=== PATIENT | female | born 1980 | race Hispanic/Latino ===

== ENCOUNTER 2017-10-06 05:36 | Outpatient (CLI) | payer MEDICAID ==
[2017-10-06] MEDS ORDERED: LACTATED RINGERS 500 ML IV ONE (05:47)
[2017-10-06] MEDS ORDERED: FIORICET PO PRN (06:00)
[2017-10-06] MEDS ORDERED: ZOFRAN ODT PO PRN (06:16)
[2017-10-06 06:26] LABS: Bilirubin,Urine NEG (Negative); Blood,Urine NEG (Negative); Color,Urine Yellow (Yellow); Mucus,Urine FEW /HPF
[2017-10-06 06:55] LABS: Hematocrit 27.7 % (30.3-42.9); Hemoglobin 9.1 gm/dl (10.1-14.3); Mean Corpuscular HGB Conc 33 % (30-34); Mean Corpuscular Volume 78 fl (79-97); Platelet Count 226 K/mm3 (140-440); Red Blood Count 3.55 M/mm3 (3.65-5.03); Red Cell Distribution Width 17.9 % (13.2-15.2)
[2017-10-06 06:56] LABS: Mean Corpuscular Hemoglobin 26 pg (28-32)
[2017-10-06 07:01] LABS: Total Volume,Urine 1650
[2017-10-06 07:07] LABS: Amphetamine Screen,Urine PRESUMPTIVE NEGATIVE; Benzodiazepines Screen,Urine PRESUMPTIVE NEGATIVE; Cannabinoid Screen,Urine PRESUMPTIVE NEGATIVE; Cocaine Screen,Urine PRESUMPTIVE NEGATIVE; Methadone Screen,Urine PRESUMPTIVE NEGATIVE; Opiate Screen,Urine PRESUMPTIVE NEGATIVE
[2017-10-06 07:15] LABS: Alanine Aminotransferase 9 units/L (7-56); Uric Acid 5.8 mg/dL (3.5-7.6)
--- NOTE | 2017-10-06 07:29 | Event Note ---
Date: 10/06/17 patient in triage w/ c/o migraine QUINN. She states she went to [facility] Wednesday night after dropping off 24h urine in [place] office (refused to stay for blood draw ) with same complaint and was d/c'd home with instructions to complete another 24h urine. Wednesday's 24h urine in office is pending results. Patient has been non compliant keeping appointments with [facility], f/u in our office, taking prescribed labetalol and completing baseline pre-e labs. In fact, the urine dropped off in the office Wednesday was supposed to be part of her baseline pre-e labs d/t existing maternal hypertension therefor there is nothing to compare today's results with. FHT cat 1, no ctx noted, pt c/o QUINN with light sensitivty that she describes as a migraine (she does have hx of migranes prior to ). She denies epigastric pain. RN to enter b/p into chart but was 130's /70's when I assessed patient. Will consult Dr. Lane with results and further plan of care.
[2017-10-06 07:40] VITALS: BP 143/62
[2017-10-06] MEDS ORDERED: NORCO 5/325 PO ONE (08:35)
[2017-10-06] MEDS ORDERED: LACTATED RINGERS 1,000 ML IV ONE (08:35)
[2017-10-06] MEDS ORDERED: LACTATED RINGERS 1,000 ML ONE (08:37)
== END 2017-10-06 10:15 | disposition home or self-care (01) ==
LOC: TRG 05:36
PROVIDERS: ATTEND Obstetrics & Gynecology
DX: O26.892 Other specified pregnancy related conditions, second trimester (principal); R51 Headache; Z3A.26 26 weeks gestation of pregnancy
CPT/HCPCS: 36415; 59025; 80307; 81001; 82565; 83615; 84156; 84450; 84460; 84550; 85027; 96360; J7120; Q0162

== ENCOUNTER 2017-11-26 13:13 | Outpatient (CLI) | payer MEDICAID ==
[2017-11-26] MEDS ORDERED: LACTATED RINGERS 500 ML IV ONE (14:08)
[2017-11-26 14:52] LABS: Bacteria,Urine 1+ /HPF (Negative); Bilirubin,Urine NEG (Negative); Blood,Urine NEG (Negative); Color,Urine Yellow (Yellow); Protein,Urine <15 mg/dL mg/dL (Negative); Urobilinogen,Urine < 2.0 mg/dL (<2.0)
[2017-11-26] MEDS ORDERED: NORMODYNE PO SCH (15:00)
[2017-11-26 16:27] LABS: Hematocrit 28.1 % (30.3-42.9); Mean Corpuscular HGB Conc 32 % (30-34); Mean Corpuscular Volume 76 fl (79-97); Platelet Count 237 K/mm3 (140-440); Red Cell Distribution Width 17.7 % (13.2-15.2)
[2017-11-26 16:33] LABS: Mean Corpuscular Hemoglobin 24 pg (28-32)
[2017-11-26 16:41] LABS: Alanine Aminotransferase 6 units/L (7-56); Uric Acid 4.3 mg/dL (3.5-7.6)
[2017-11-26 20:31] VITALS: BP 137/75
== END 2017-11-26 17:55 | disposition home or self-care (01) ==
LOC: TRG 13:13
PROVIDERS: ATTEND Obstetrics & Gynecology
DX: O09.523 Supervision of elderly multigravida, third trimester (principal); O47.1 False labor at or after 37 completed weeks of gestation; Z3A.37 37 weeks gestation of pregnancy
CPT/HCPCS: 36415; 59025; 81001; 82565; 83615; 84450; 84460; 84550; 85027

== ENCOUNTER 2017-12-22 20:38 | Inpatient (IN) | payer MEDICAID ==
--- NOTE | 2017-12-22 22:32 | History and Physical Report ---
History of Present Illness Date of examination: 12/22/17 Date of admission: 12/22/17 20:38 Chief complaint: here for iol for pre eclampsia History of present illness: Pt presents for scheduled IOL @ 37wks for mild pre E. She has no c/o this pm. Some irregular contractions are noted. Will start with cervidil this pm. Plan of care and serial IOL as well as need for MgSO4 and anitbx for GBS were d/w pt and questions were addressed and answered. Past History : 15 Term Births: 7 Premature Births: 1 Living Children: 8 Para: 8 Mult. Births: 0 Prev : 0 Prev. attempt? 0 Aborta: 6 Elect. Ab: 0 Spont. Ab: 6 Ectopics: 0 # 1 Delivery date: 2000 Weeks Gestation: 8 Delivery type: SAB Comments: D&C # 2 Delivery date: 03/07/2002 Weeks Gestation: 40 labor: no Delivery type: Hours of labor: 8 Anesthesia type: local Delivery location: [place] Sex: Male weight: 6-12 Name: Yosvany # 3 Delivery date: 12/16/2002 Weeks Gestation: 36 labor: yes Delivery type: Hours of labor: 15 Anesthesia type: epidural Delivery location: [place] Infant Sex: Female weight: 5-3 Name: Jacquie # 4 Delivery date: 2003 Weeks Gestation: 9-10 Delivery type: SAB Comments: D&C done # 5 Delivery date: 2003 Weeks Gestation: 9-10 Delivery type: SAB Comments: D&C done # 6 Delivery date: 03/11/2005 Weeks Gestation: 38 Delivery type: Hours of labor: 5 Anesthesia type: none Delivery location: [place] Inf[place] Sex: Male weight: 7-3 Name: Alexandre Comments: Hydramnios # 7 Delivery date: 2006 Weeks Gestation: - labor: no Delivery type: SAB Hours of labor: - Anesthesia type: - Delivery location: [place] Sex: - weight: - Name: - Comments: D&C done # 8 Delivery date: 06/04/2007 Weeks Gestation: 39 labor: no Delivery type: Hours of labor: 10 Anesthesia type: epidural Delivery location: [place] Sex: Male weight: 7-3 Name: Pranav # 9 Delivery date: 2011 Weeks Gestation: 12 Delivery type: SAB Delivery location: [place] Comments: D&C done # 10 Delivery date: 2011 Weeks Gestation: 6-8 Delivery type: SAB Hours of labor: - Anesthesia type: - Delivery location: [place] Inf[place] Sex: - weight: - Name: - Comments: No D&C # 11 Delivery date: 11/28/2012 Weeks Gestation: 40 labor: no Delivery type: Hours of labor: 8 Anesthesia type: epidural Delivery location: [place] Sex: Female weight: 7-2 Name: Lorraine Comments: Induction for cervical stenosis # 12 Delivery date: 02/22/2014 Weeks Gestation: 38 labor: no Delivery type: Hours of labor: 10 Anesthesia type: epidural Delivery location: [place] Infant Sex: Female weight: 8-3 Name: Alyssa # 13 Delivery date: 03/01/2015 Weeks Gestation: 39 labor: no Delivery type: Hours of labor: 8 Anesthesia type: epidural Delivery location: [place] Sex: Female weight: 8-1 Name: Katy # 14 Delivery date: 04/04/2016 Weeks Gestation: 32? labor: yes Delivery type: Hours of labor: 10 Anesthesia type: epidural Delivery location: [place] Sex: Male weight: 5-5 Name: Braulio Past Medical History: Hypertension (2015) Mental health borderline personality disorder Presently on no medications Anxiety Past Surgical History: Cone biopsy(2007) Abdominal Surgery: (2007) abdominoplasty D&C: (2000) D&C: (2003) D&C: (2003) D&C: (2005) D&C: (2011) D&C: (2011) Family History Summary: Other family member - Has No Family History of Ovarvian Cancer - Entered On: Other family member - Has No Family History of Colon Cancer - Entered On: 2016 Other family member - Has Family History of Hypertension - Entered On: 2016 Other family member - Has Family History of Diabetes - Entered On: 06/01/2017 Other family member - Has Family History of Coronary Heart Disease - Entered On : 06/01/2017 Other family member - Has Family History Breast Cancer - Entered On: 06/01/2017 Social History: Patient is [employer] Risk Factors: Smoked Tobacco Use: Never smoker Drug use: no Alcohol use: yes Drinks per day: social Dietary Counseling: pn yes Past Medical History 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 of genital herpes: no Partner hx. of genital herpes: no Genetic History Congenital Heart Defect: Mom: no Dad: no [place] Disease: Mom: no Dad: no Thalassemia Mom: no Dad: no Neural Tube Defect Mom: no Dad: no Down's Syndrome Mom: no Dad: no Terrence-Sachs Mom: no Dad: no Sickle Cell Disease/Trait Mom: no Dad: no Hemophilia Mom: no Dad: no Muscular Dystrophy Mom: no Dad: no Cystic Fibrosis Mom: no Dad: no [place] Chorea Mom: no Dad: no Mental Retardation Mom: no Dad: no Fragile X Mom: no Dad: no Other Genetic/Chromosomal Disorder Mom: no Dad: no Child w/other defect Mom: no Dad: no Enviromental Exposures Xray Exposure: no Medication, drug, or alcohol use since LMP: yes Chemical/Other Exposure: no Exposure to Cat Liter: no Hx of Parvovirus (Fifth Disease): no Active Medications (reviewed today): FORMULA 27-1 MG ORAL TABLET ( VIT-FE FUMARATE-FA) 1 po q day as directed CYCLOBENZAPRINE HCL 10 MG ORAL TABLET (CYCLOBENZAPRINE HCL) HYDRALAZINE HCL 10 MG ORAL TABLET (HYDRALAZINE HCL) TRANDATE 100 MG ORAL TABLET (LABETALOL HCL) Current Allergies (reviewed today): TYLENOL WITH CODEINE #3 (ACETAMINOPHEN-CODEINE TABS) (Critical) Past History Past Medical History: other (pre eclampsia) 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) Social history: no significant social history, single - Obstetrical History Expected Date of Delivery: 01/13/18 Actual Gestation: 36 Week(s) 6 Day(s) : 15 Para: 8 Spontaneous Abortions: 6 Number of Living Children: 8 Medications and Allergies Allergies Allergy/AdvReac Type Severity Reaction Status Date / Time No Known Allergies Allergy Verified 10/06/17 06:27 Home Medications Medication Instructions Recorded Confirmed Last Taken Type Labetalol [Normodyne] 200 mg PO BID 11/03/17 11/26/17 11/25/17 History Vit-Fe Fumar-FA [ 1 tab PO QDAY 11/03/17 11/26/17 11/02/17 History Vitamin] Docusate Sodium [Colace] 100 mg PO BID PRN #60 capsule 11/04/17 11/26/17 Unknown Rx Ferrous Sulfate [Feosol 325 MG tab] 325 mg PO BID #60 tablet 11/04/17 11/26/17 Unknown Rx Review of Systems All systems: negative - Vital Signs Vital signs: Vital Signs Pulse BP Pulse Ox 98 H 182/103 96 12/22/17 21:01 12/22/17 21:01 12/22/17 21:01 Temp Pulse Resp BP Pulse Ox 98.9 F 95 H 18 187/86 97 12/22/17 21:27 12/22/17 22:31 12/22/17 21:27 12/22/17 22:06 12/22/17 22:31 - Physical Exam Breasts: Positive: tender Cardiovascular: Normal S1 Lungs: Positive: Clear to auscultation, Normal air movement Abdomen: Positive: normal appearance, soft. Negative: distention, tenderness, guarding Genitourinary (Female): Positive: normal external genitalia, normal perenium - Obstetrical FHR: category 1 Cervical Dilatation: 1.2 (as per admitting nurse) Results Result Diagrams: 12/22/17 22:20 All other labs normal. Assessment and Plan - Patient Problems (1) Preeclampsia Current Visit: No Status: Acute Qualifiers: Plan to address problem: place cervidil at midnight at which point pt will be 37 weeks start serial IOL MgSO4 when in active labor or sooner for bp >160/105 (2) 36 to 37 weeks gestation of Current Visit: Yes Status: Acute (3) Anemia affecting in third trimester Current Visit: Yes Status: Acute (4) Group beta Strep positive Current Visit: Yes Status: Acute Plan to address problem: -antibx started once in active labor or SROM
[2017-12-22 22:34] LABS: Hemoglobin 8.6 gm/dl (10.1-14.3); Mean Corpuscular HGB Conc 32 % (30-34); Mean Corpuscular Volume 73 fl (79-97); Platelet Count 233 K/mm3 (140-440); Red Blood Count 3.69 M/mm3 (3.65-5.03); Red Cell Distribution Width 18.4 % (13.2-15.2)
[2017-12-22 22:37] LABS: Mean Corpuscular Hemoglobin 23 pg (28-32)
[2017-12-22] MEDS ORDERED: BRETHINE SUB-Q PRN (22:47)
[2017-12-22] MEDS ORDERED: BRETHINE IVP PRN (22:47)
[2017-12-22] MEDS ORDERED: ePHEDrine SULFATE IV PRN (22:47)
[2017-12-22] MEDS ORDERED: ZOFRAN IV PRN (22:47)
[2017-12-22] MEDS ORDERED: XYLOCAINE 2% INFILTRATI ONE (22:47)
[2017-12-22] MEDS ORDERED: MINERAL OIL PO PRN (22:47)
[2017-12-22] MEDS ORDERED: POLYCILLIN/NS 2 GM/100 ML 2 GM/100 ML BAG IV ONE (22:47)
[2017-12-22] MEDS ORDERED: PITOCin/NS 20 UNIT/1000ML DRIP 20 UNITS/1,000 ML BAG IV SCH (23:00)
[2017-12-22] MEDS ORDERED: AMBIEN PO PRN (23:23)
[2017-12-22] MEDS: SUBLIMAZE IV PRN (23:24)
[2017-12-22] MEDS: NORMODYNE PO SCH (23:34)
[2017-12-22] MEDS: LACTATED RINGERS 1,000 ML IV SCH (23:48)
[2017-12-23] MEDS ORDERED: CERVIDIL VG ONE
[2017-12-23 00:10] LABS: Alanine Aminotransferase 6 units/L (7-56); Albumin 3.2 g/dL (3.9-5); BUN/Creatinine Ratio 20; Blood Urea Nitrogen 10 mg/dL (7-17); Calcium 8.5 mg/dL (8.4-10.2); Hemolysis Index 2
[2017-12-23] MEDS: AMPICILLIN/NS 1 GM/50 ML 1 GM/50 ML BAG IV SCH ×4 (04:00→19:28)
--- NOTE | 2017-12-23 07:18 | Progress Note ---
Assessment and Plan Pt very sleepy Easily aroused. Denies any pain, no QUINN BP 146/81 Cat 1 stripEDWIGE deferred Cervidil due out @ noon. Continue POC. consulted/given report. Subjective - Subjective Date of service: 12/23/17 (sleeping soundly) Principal diagnosis: IUP 37 weeks for IOL PreE; GBS+ Patient reports: movement normal Objective - Vital Signs Vital Signs: Vital Signs - 12hr 12/22/17 12/22/17 12/22/17 21:01 21:06 21:11 Temperature Pulse Rate 98 H 97 H 96 H Respiratory Rate Blood Pressure 182/103 Blood Pressure [Right] O2 Sat by Pulse 96 96 96 Oximetry 12/22/17 12/22/17 12/22/17 21:16 21:21 21:26 Temperature Pulse Rate 90 91 H 94 H Respiratory Rate Blood Pressure Blood Pressure [Right] O2 Sat by Pulse 96 96 97 Oximetry 12/22/17 12/22/17 12/22/17 21:27 21:31 21:33 Temperature 98.9 F Pulse Rate 96 H 97 H 90 Respiratory 18 Rate Blood Pressure 144/80 Blood Pressure 144/80 [Right] O2 Sat by Pulse 95 96 Oximetry 12/22/17 12/22/17 12/22/17 21:36 21:41 21:46 Temperature Pulse Rate 100 H 97 H 92 H Respiratory Rate Blood Pressure Blood Pressure [Right] O2 Sat by Pulse 96 96 98 Oximetry 12/22/17 12/22/17 12/22/17 21:51 21:56 22:01 Temperature Pulse Rate 95 H 103 H 92 H Respiratory Rate Blood Pressure Blood Pressure [Right] O2 Sat by Pulse 96 96 97 Oximetry 12/22/17 12/22/17 12/22/17 22:06 22:11 22:16 Temperature Pulse Rate 92 H 98 H 96 H Respiratory Rate Blood Pressure 187/86 Blood Pressure [Right] O2 Sat by Pulse 96 97 97 Oximetry 12/22/17 12/22/17 12/22/17 22:21 22:26 22:31 Temperature Pulse Rate 97 H 92 H 95 H Respiratory Rate Blood Pressure Blood Pressure [Right] O2 Sat by Pulse 97 97 97 Oximetry 12/22/17 12/22/17 12/22/17 22:36 22:38 22:41 Temperature Pulse Rate 89 88 90 Respiratory Rate Blood Pressure 149/72 Blood Pressure [Right] O2 Sat by Pulse 97 97 Oximetry 12/22/17 12/22/17 12/22/17 22:46 22:51 22:56 Temperature Pulse Rate 89 91 H 91 H Respiratory Rate Blood Pressure Blood Pressure [Right] O2 Sat by Pulse 97 97 97 Oximetry 12/22/17 12/22/17 12/22/17 23:01 23:06 23:11 Temperature Pulse Rate 101 H 95 H 91 H Respiratory Rate Blood Pressure 156/91 Blood Pressure [Right] O2 Sat by Pulse 98 97 96 Oximetry 12/22/17 12/22/17 12/22/17 23:16 23:21 23:24 Temperature Pulse Rate 95 H 95 H Respiratory 18 Rate Blood Pressure Blood Pressure [Right] O2 Sat by Pulse 98 96 Oximetry 12/22/17 12/22/17 12/22/17 23:26 23:31 23:34 Temperature Pulse Rate 96 H 99 H 102 H Respiratory Rate Blood Pressure 175/93 Blood Pressure [Right] O2 Sat by Pulse 97 96 Oximetry 12/22/17 12/22/17 12/22/17 23:36 23:37 23:41 Temperature Pulse Rate 99 H 94 H 98 H Respiratory Rate Blood Pressure 175/93 Blood Pressure [Right] O2 Sat by Pulse 97 96 Oximetry 12/22/17 12/22/17 12/22/17 23:45 23:48 23:53 Temperature Pulse Rate 99 H 96 H Respiratory Rate Blood Pressure Blood Pressure [Right] O2 Sat by Pulse 88 97 97 Oximetry 12/22/17 12/22/17 12/23/17 23:54 23:58 00:03 Temperature Pulse Rate 86 86 Respiratory 18 Rate Blood Pressure Blood Pressure [Right] O2 Sat by Pulse 97 96 Oximetry 12/23/17 12/23/17 12/23/17 00:06 00:08 00:13 Temperature Pulse Rate 95 H 88 89 Respiratory Rate Blood Pressure 177/94 Blood Pressure [Right] O2 Sat by Pulse 96 96 Oximetry 12/23/17 12/23/17 12/23/17 00:18 00:23 00:28 Temperature Pulse Rate 91 H 88 86 Respiratory Rate Blood Pressure Blood Pressure [Right] O2 Sat by Pulse 96 96 96 Oximetry 12/23/17 12/23/17 12/23/17 00:33 00:36 00:38 Temperature Pulse Rate 89 90 97 H Respiratory Rate Blood Pressure 141/68 Blood Pressure [Right] O2 Sat by Pulse 96 94 96 Oximetry 12/23/17 12/23/17 12/23/17 00:43 00:48 00:53 Temperature Pulse Rate 85 89 89 Respiratory Rate Blood Pressure Blood Pressure [Right] O2 Sat by Pulse 97 96 96 Oximetry 12/23/17 12/23/17 12/23/17 00:58 01:03 01:04 Temperature Pulse Rate 91 H 90 90 Respiratory Rate Blood Pressure Blood Pressure [Right] O2 Sat by Pulse 95 95 94 Oximetry 12/23/17 12/23/17 12/23/17 01:07 01:08 01:13 Temperature Pulse Rate 89 92 H 89 Respiratory Rate Blood Pressure 149/73 Blood Pressure [Right] O2 Sat by Pulse 95 95 Oximetry 12/23/17 12/23/17 12/23/17 01:18 01:23 01:28 Temperature Pulse Rate 88 87 90 Respiratory Rate Blood Pressure Blood Pressure [Right] O2 Sat by Pulse 95 95 95 Oximetry 12/23/17 12/23/17 12/23/17 01:33 01:34 01:38 Temperature Pulse Rate 89 92 H 92 H Respiratory Rate Blood Pressure 158/81 Blood Pressure [Right] O2 Sat by Pulse 95 94 97 Oximetry 12/23/17 12/23/17 12/23/17 01:43 01:48 01:53 Temperature Pulse Rate 89 90 91 H Respiratory Rate Blood Pressure Blood Pressure [Right] O2 Sat by Pulse 96 96 95 Oximetry 12/23/17 12/23/17 12/23/17 01:58 02:03 02:06 Temperature Pulse Rate 92 H 89 93 H Respiratory Rate Blood Pressure 159/79 Blood Pressure [Right] O2 Sat by Pulse 95 96 Oximetry 12/23/17 12/23/17 12/23/17 02:08 02:13 02:18 Temperature Pulse Rate 93 H 92 H 90 Respiratory Rate Blood Pressure Blood Pressure [Right] O2 Sat by Pulse 95 96 96 Oximetry 12/23/17 12/23/17 12/23/17 02:23 02:28 02:33 Temperature Pulse Rate 86 88 90 Respiratory Rate Blood Pressure Blood Pressure [Right] O2 Sat by Pulse 96 96 95 Oximetry 12/23/17 12/23/17 12/23/17 02:36 02:38 02:43 Temperature Pulse Rate 87 89 86 Respiratory Rate Blood Pressure 139/69 Blood Pressure [Right] O2 Sat by Pulse 94 95 96 Oximetry 12/23/17 12/23/17 12/23/17 02:48 02:53 02:55 Temperature Pulse Rate 87 86 90 Respiratory Rate Blood Pressure Blood Pressure [Right] O2 Sat by Pulse 95 96 93 Oximetry 12/23/17 12/23/17 12/23/17 02:58 03:03 03:05 Temperature Pulse Rate 89 89 87 Respiratory Rate Blood Pressure Blood Pressure [Right] O2 Sat by Pulse 96 96 94 Oximetry 12/23/17 12/23/17 12/23/17 03:06 03:08 03:13 Temperature Pulse Rate 87 90 86 Respiratory Rate Blood Pressure 146/72 Blood Pressure [Right] O2 Sat by Pulse 96 95 Oximetry 12/23/17 12/23/17 12/23/17 03:18 03:23 03:28 Temperature Pulse Rate 88 86 86 Respiratory Rate Blood Pressure Blood Pressure [Right] O2 Sat by Pulse 95 95 95 Oximetry 12/23/17 12/23/17 12/23/17 03:33 03:38 03:43 Temperature Pulse Rate 86 87 87 Respiratory Rate Blood Pressure Blood Pressure [Right] O2 Sat by Pulse 95 95 95 Oximetry 12/23/17 12/23/17 12/23/17 03:45 03:48 03:53 Temperature Pulse Rate 90 87 87 Respiratory Rate Blood Pressure Blood Pressure [Right] O2 Sat by Pulse 94 95 95 Oximetry 12/23/17 12/23/17 12/23/17 03:58 04:03 04:07 Temperature Pulse Rate 88 87 89 Respiratory Rate Blood Pressure 144/84 Blood Pressure [Right] O2 Sat by Pulse 97 96 Oximetry 12/23/17 12/23/17 12/23/17 04:08 04:13 04:18 Temperature Pulse Rate 88 84 89 Respiratory Rate Blood Pressure Blood Pressure [Right] O2 Sat by Pulse 97 96 95 Oximetry 12/23/17 12/23/17 12/23/17 04:23 04:28 04:33 Temperature Pulse Rate 87 89 91 H Respiratory Rate Blood Pressure Blood Pressure [Right] O2 Sat by Pulse 96 96 96 Oximetry 12/23/17 12/23/17 12/23/17 04:36 04:38 04:43 Temperature Pulse Rate 91 H 92 H 89 Respiratory Rate Blood Pressure 140/80 Blood Pressure [Right] O2 Sat by Pulse 94 95 95 Oximetry 12/23/17 12/23/17 12/23/17 04:48 04:52 04:53 Temperature Pulse Rate 88 89 92 H Respiratory Rate Blood Pressure Blood Pressure [Right] O2 Sat by Pulse 95 94 96 Oximetry 12/23/17 12/23/17 12/23/17 04:57 04:58 05:03 Temperature Pulse Rate 92 H 89 89 Respiratory Rate Blood Pressure Blood Pressure [Right] O2 Sat by Pulse 94 95 95 Oximetry 12/23/17 12/23/17 12/23/17 05:07 05:08 05:12 Temperature Pulse Rate 93 H 90 92 H Respiratory Rate Blood Pressure 133/83 Blood Pressure [Right] O2 Sat by Pulse 94 96 94 Oximetry 12/23/17 05:13 Temperature Pulse Rate 88 Respiratory Rate Blood Pressure Blood Pressure [Right] O2 Sat by Pulse 97 Oximetry - Exam Breasts: deferred Cardiovascular: Regular rate Lungs: Normal air movement Abdomen: Present: normal appearance, soft. Absent: distention, tenderness Uterus: Present: normal FHR: auscultation normal, category 1 Uterine Contraction Monitor Mode: External Uterine Contraction Pattern: Irregular Uterine Tone Measurement Phase: Resting Uterine Contraction Intensity: Mild Extremities: edema Deep Tendon Reflex Grade: Normal +2 - Labs Labs: Abnormal Labs 12/22/17 12/22/17 22:20 23:36 WBC 13.4 H Hgb 8.6 L Hct 27.0 L MCV 73 L MCH 23 L RDW 18.4 H Creatinine 0.5 L ALT 6 L Total Protein 5.9 L Albumin 3.2 L Laboratory Results - last 24 hr 12/22/17 12/22/17 12/22/17 22:20 22:20 23:36 WBC 13.4 H RBC 3.69 Hgb 8.6 L Hct 27.0 L MCV 73 L MCH 23 L MCHC 32 RDW 18.4 H Plt Count 233 Sodium 139 Potassium 3.7 Chloride 101.7 Carbon Dioxide 22 Anion Gap 19 BUN 10 Creatinine 0.5 L Estimated GFR > 60 BUN/Creatinine Ratio 20 Glucose 92 Calcium 8.5 Total Bilirubin 0.20 AST 12 ALT 6 L Alkaline Phosphatase 94 Total Protein 5.9 L Albumin 3.2 L Albumin/Globulin Ratio 1.2 Blood Type O POSITIVE Antibody Screen Negative
[2017-12-23] MEDS ORDERED: TYLENOL PO PRN (09:13)
[2017-12-23] MEDS: NORMODYNE PO SCH (09:39)
[2017-12-23] MEDS: SUBLIMAZE IV PRN ×2 (09:48→15:30)
[2017-12-23] MEDS: PITOCin/NS 30 UNIT/500ML 30 UNITS/500 ML BAG IV SCH ×5 (12:54→17:38)
[2017-12-23] MEDS ORDERED: CERVIDIL VG SCH (14:00)
[2017-12-23] MEDS: LACTATED RINGERS 1,000 ML IV SCH ×2 (15:10→19:16)
[2017-12-23] MEDS ORDERED: NARCAN 2 MG/2 ML IV PRN (17:06)
[2017-12-23] MEDS ORDERED: ePHEDrine SULFATE IV PRN (17:06)
--- NOTE | 2017-12-23 17:32 | Anesthesia Consultation ---
Anesthesia Consult and Med Hx Date of service: 12/23/17 - Airway Anesthetic Teeth Evaluation: Good ROM Head & Neck: Adequate Mental/Hyoid Distance: Adequate Mallampati Class: Class II Intubation Access Assessment: Probably Good - Pre-Operative Health Status ASA Pre-Surgery Classification: ASA2 Proposed Anesthetic Plan: Epidural, Spinal - Pulmonary Hx Asthma: No COPD: No Hx Pneumonia: No - Cardiovascular System Hx Hypertension: Yes (chronic hypertention) - Central Nervous System Hx Seizures: No Hx Psychiatric Problems: No - Endocrine Hx Renal Disease: No Hx End Stage Renal Disease: No Hx Hypothyroidism: No Hx Hyperthyroidism: No - Hematic Hx Anemia: No Hx Sickle Cell Disease: No - Other Systems Hx Alcohol Use: No
[2017-12-23] MEDS ORDERED: fentaNYL-BUPIV 2 MCG/ML-0.125% 200 MCG/100 ML BAG EPIDURAL SCH (18:00)
[2017-12-23] MEDS ORDERED: MAGNESIUM SULFATE 2GM/50ML 2 GM/50 ML BAG IV ONE (20:21)
--- NOTE | 2017-12-23 20:50 | Progress Note ---
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: Yes Status: Acute Plan to address problem: Continue ampicillin Subjective - Subjective Date of service: 12/23/17 Principal diagnosis: IUP 37 weeks for IOL PreE; GBS+ Patient reports: movement normal Objective - Vital Signs Vital Signs: Vital Signs - 12hr 12/23/17 12/23/17 12/23/17 08:58 09:03 09:07 Temperature 98.9 F Pulse Rate 84 91 H Respiratory 18 Rate Blood Pressure Blood Pressure [Right] O2 Sat by Pulse 99 98 Oximetry 12/23/17 12/23/17 12/23/17 09:08 09:13 09:18 Temperature Pulse Rate 93 H 92 H 90 Respiratory Rate Blood Pressure Blood Pressure [Right] O2 Sat by Pulse 98 98 99 Oximetry 12/23/17 12/23/17 12/23/17 09:23 09:28 09:29 Temperature Pulse Rate 88 86 86 Respiratory Rate Blood Pressure 167/89 Blood Pressure [Right] O2 Sat by Pulse 99 99 Oximetry 12/23/17 12/23/17 12/23/17 09:33 09:35 09:39 Temperature Pulse Rate 91 H 80 89 Respiratory Rate Blood Pressure 162/89 Blood Pressure [Right] O2 Sat by Pulse 99 89 Oximetry 12/23/17 12/23/17 12/23/17 09:46 09:48 09:53 Temperature Pulse Rate 57 L 102 H 84 Respiratory Rate Blood Pressure Blood Pressure [Right] O2 Sat by Pulse 83 L 96 99 Oximetry 12/23/17 12/23/17 12/23/17 09:58 10:03 10:08 Temperature Pulse Rate 87 87 87 Respiratory Rate Blood Pressure Blood Pressure [Right] O2 Sat by Pulse 99 98 97 Oximetry 12/23/17 12/23/17 12/23/17 10:13 10:18 10:23 Temperature Pulse Rate 81 84 87 Respiratory Rate Blood Pressure Blood Pressure [Right] O2 Sat by Pulse 97 97 96 Oximetry 12/23/17 12/23/17 12/23/17 10:28 10:33 10:41 Temperature Pulse Rate 83 80 53 L Respiratory Rate Blood Pressure Blood Pressure [Right] O2 Sat by Pulse 97 97 85 Oximetry 12/23/17 12/23/17 12/23/17 11:01 11:06 11:11 Temperature Pulse Rate 92 H 85 81 Respiratory Rate Blood Pressure 128/71 Blood Pressure [Right] O2 Sat by Pulse 96 96 96 Oximetry 12/23/17 12/23/17 12/23/17 11:16 11:21 11:26 Temperature Pulse Rate 86 87 86 Respiratory Rate Blood Pressure Blood Pressure [Right] O2 Sat by Pulse 96 96 96 Oximetry 12/23/17 12/23/17 12/23/17 11:28 11:31 11:36 Temperature Pulse Rate 81 80 82 Respiratory Rate Blood Pressure 120/60 Blood Pressure [Right] O2 Sat by Pulse 97 96 Oximetry 12/23/17 12/23/17 12/23/17 11:41 11:46 11:51 Temperature Pulse Rate 81 82 80 Respiratory Rate Blood Pressure Blood Pressure [Right] O2 Sat by Pulse 96 96 97 Oximetry 12/23/17 12/23/17 12/23/17 11:56 11:59 12:01 Temperature Pulse Rate 79 77 80 Respiratory Rate Blood Pressure 140/71 Blood Pressure [Right] O2 Sat by Pulse 96 97 Oximetry 12/23/17 12/23/17 12/23/17 12:06 12:11 12:16 Temperature Pulse Rate 81 80 79 Respiratory Rate Blood Pressure Blood Pressure [Right] O2 Sat by Pulse 96 96 98 Oximetry 12/23/17 12/23/17 12/23/17 12:21 12:26 12:28 Temperature Pulse Rate 87 77 76 Respiratory Rate Blood Pressure 137/77 Blood Pressure [Right] O2 Sat by Pulse 97 96 Oximetry 12/23/17 12/23/17 12/23/17 12:31 12:36 12:41 Temperature Pulse Rate 76 82 78 Respiratory Rate Blood Pressure Blood Pressure [Right] O2 Sat by Pulse 96 96 97 Oximetry 12/23/17 12/23/17 12/23/17 12:46 12:51 12:56 Temperature Pulse Rate 77 80 79 Respiratory Rate Blood Pressure Blood Pressure [Right] O2 Sat by Pulse 96 96 96 Oximetry 12/23/17 12/23/17 12/23/17 12:57 13:04 13:09 Temperature Pulse Rate 81 78 Respiratory Rate Blood Pressure 142/80 Blood Pressure [Right] O2 Sat by Pulse 84 98 Oximetry 12/23/17 12/23/17 12/23/17 13:13 13:14 13:19 Temperature 98.7 F Pulse Rate 77 79 75 Respiratory 18 Rate Blood Pressure 152/83 Blood Pressure [Right] O2 Sat by Pulse 98 97 Oximetry 12/23/17 12/23/17 12/23/17 13:24 13:27 13:29 Temperature Pulse Rate 77 82 76 Respiratory Rate Blood Pressure 145/81 Blood Pressure [Right] O2 Sat by Pulse 97 96 Oximetry 12/23/17 12/23/17 12/23/17 13:34 13:39 13:42 Temperature Pulse Rate 78 77 77 Respiratory Rate Blood Pressure 148/87 Blood Pressure [Right] O2 Sat by Pulse 97 97 Oximetry 12/23/17 12/23/17 12/23/17 13:44 13:49 13:54 Temperature Pulse Rate 73 81 76 Respiratory Rate Blood Pressure Blood Pressure [Right] O2 Sat by Pulse 96 96 97 Oximetry 12/23/17 12/23/17 12/23/17 13:58 13:59 14:04 Temperature Pulse Rate 76 78 82 Respiratory Rate Blood Pressure 153/78 Blood Pressure [Right] O2 Sat by Pulse 97 97 Oximetry 12/23/17 12/23/17 12/23/17 14:09 14:13 14:14 Temperature Pulse Rate 82 87 83 Respiratory Rate Blood Pressure 153/90 Blood Pressure [Right] O2 Sat by Pulse 98 97 Oximetry 12/23/17 12/23/17 12/23/17 14:19 14:24 14:27 Temperature Pulse Rate 96 H 100 H 91 H Respiratory Rate Blood Pressure 142/84 Blood Pressure [Right] O2 Sat by Pulse 97 98 Oximetry 12/23/17 12/23/17 12/23/17 14:29 14:34 14:39 Temperature Pulse Rate 80 84 92 H Respiratory Rate Blood Pressure Blood Pressure [Right] O2 Sat by Pulse 96 95 97 Oximetry 12/23/17 12/23/17 12/23/17 14:43 14:44 14:49 Temperature Pulse Rate 80 84 85 Respiratory Rate Blood Pressure 158/80 Blood Pressure [Right] O2 Sat by Pulse 98 97 Oximetry 12/23/17 12/23/17 12/23/17 14:54 14:58 14:59 Temperature Pulse Rate 81 89 91 H Respiratory Rate Blood Pressure 161/79 Blood Pressure [Right] O2 Sat by Pulse 97 97 Oximetry 12/23/17 12/23/17 12/23/17 15:04 15:09 15:12 Temperature Pulse Rate 86 90 97 H Respiratory Rate Blood Pressure 159/82 Blood Pressure [Right] O2 Sat by Pulse 97 97 Oximetry 12/23/17 12/23/17 12/23/17 15:14 15:19 15:26 Temperature Pulse Rate 84 Respiratory Rate Blood Pressure Blood Pressure [Right] O2 Sat by Pulse 89 82 L 98 Oximetry 12/23/17 12/23/17 12/23/17 15:28 15:31 15:36 Temperature Pulse Rate 88 90 85 Respiratory Rate Blood Pressure 163/89 Blood Pressure [Right] O2 Sat by Pulse 97 98 Oximetry 12/23/17 12/23/17 12/23/17 15:41 15:42 15:46 Temperature Pulse Rate 73 81 71 Respiratory Rate Blood Pressure 149/67 Blood Pressure [Right] O2 Sat by Pulse 97 96 Oximetry 12/23/17 12/23/17 12/23/17 15:51 15:56 15:57 Temperature Pulse Rate 73 75 76 Respiratory Rate Blood Pressure 176/82 Blood Pressure [Right] O2 Sat by Pulse 96 96 Oximetry 12/23/17 12/23/17 12/23/17 16:01 16:06 16:11 Temperature Pulse Rate 77 81 76 Respiratory Rate Blood Pressure Blood Pressure [Right] O2 Sat by Pulse 95 95 95 Oximetry 12/23/17 12/23/17 12/23/17 16:14 16:16 16:21 Temperature Pulse Rate 81 76 79 Respiratory Rate Blood Pressure 181/82 Blood Pressure [Right] O2 Sat by Pulse 95 95 Oximetry 12/23/17 12/23/17 12/23/17 16:26 16:28 16:31 Temperature Pulse Rate 79 80 78 Respiratory Rate Blood Pressure 182/82 Blood Pressure [Right] O2 Sat by Pulse 95 96 Oximetry 12/23/17 12/23/17 12/23/17 16:36 16:41 16:44 Temperature Pulse Rate 80 74 86 Respiratory Rate Blood Pressure 166/90 Blood Pressure [Right] O2 Sat by Pulse 95 97 Oximetry 05/24/18 05/24/18 05/24/18 16:46 16:51 16:56 Temperature Pulse Rate 77 89 79 Respiratory Rate Blood Pressure Blood Pressure [Right] O2 Sat by Pulse 97 97 98 Oximetry 12/23/17 12/23/17 12/23/17 16:57 17:01 17:04 Temperature Pulse Rate 80 83 Respiratory Rate Blood Pressure 163/85 Blood Pressure [Right] O2 Sat by Pulse 98 83 L Oximetry 12/23/17 12/23/17 12/23/17 17:05 17:06 17:07 Temperature Pulse Rate 96 H 81 81 Respiratory Rate Blood Pressure 156/71 158/97 Blood Pressure [Right] O2 Sat by Pulse 98 Oximetry 12/23/17 12/23/17 12/23/17 17:09 17:11 17:12 Temperature Pulse Rate 80 76 77 Respiratory Rate Blood Pressure 151/76 154/83 156/90 Blood Pressure [Right] O2 Sat by Pulse 98 Oximetry 12/23/17 12/23/17 12/23/17 17:14 17:16 17:17 Temperature Pulse Rate 71 70 72 Respiratory Rate Blood Pressure 162/89 160/91 Blood Pressure [Right] O2 Sat by Pulse 98 Oximetry 12/23/17 12/23/17 12/23/17 17:18 17:20 17:21 Temperature Pulse Rate 74 78 76 Respiratory Rate Blood Pressure 152/88 152/89 Blood Pressure [Right] O2 Sat by Pulse 97 Oximetry 12/23/17 12/23/17 12/23/17 17:22 17:24 17:26 Temperature Pulse Rate 77 75 76 Respiratory Rate Blood Pressure 154/88 154/87 151/85 Blood Pressure [Right] O2 Sat by Pulse 98 Oximetry 12/23/17 12/23/17 12/23/17 17:28 17:30 17:31 Temperature 98.2 F Pulse Rate 78 73 79 Respiratory 18 Rate Blood Pressure 152/86 150/83 Blood Pressure [Right] O2 Sat by Pulse 97 Oximetry 12/23/17 12/23/17 12/23/17 17:32 17:36 17:41 Temperature Pulse Rate 81 79 74 Respiratory Rate Blood Pressure 151/84 Blood Pressure [Right] O2 Sat by Pulse 97 97 Oximetry 12/23/17 12/23/17 12/23/17 17:46 17:47 17:51 Temperature Pulse Rate 79 84 77 Respiratory Rate Blood Pressure 175/86 Blood Pressure [Right] O2 Sat by Pulse 98 97 Oximetry 12/23/17 12/23/17 12/23/17 17:56 18:01 18:03 Temperature Pulse Rate 73 75 74 Respiratory Rate Blood Pressure 132/66 Blood Pressure [Right] O2 Sat by Pulse 96 96 Oximetry 12/23/17 12/23/17 12/23/17 18:06 18:11 18:16 Temperature Pulse Rate 76 79 77 Respiratory Rate Blood Pressure Blood Pressure [Right] O2 Sat by Pulse 96 96 96 Oximetry 12/23/17 12/23/17 12/23/17 18:17 18:21 18:26 Temperature Pulse Rate 78 75 73 Respiratory Rate Blood Pressure 129/72 Blood Pressure [Right] O2 Sat by Pulse 97 97 Oximetry 12/23/17 12/23/17 12/23/17 18:31 18:33 18:36 Temperature Pulse Rate 81 82 78 Respiratory Rate Blood Pressure 167/91 Blood Pressure [Right] O2 Sat by Pulse 97 97 Oximetry 12/23/17 12/23/17 12/23/17 18:41 18:46 18:47 Temperature Pulse Rate 78 80 76 Respiratory Rate Blood Pressure 160/87 Blood Pressure [Right] O2 Sat by Pulse 97 98 Oximetry 12/23/17 12/23/17 12/23/17 18:51 18:56 19:01 Temperature Pulse Rate 79 81 75 Respiratory Rate Blood Pressure Blood Pressure [Right] O2 Sat by Pulse 97 97 98 Oximetry 12/23/17 12/23/17 12/23/17 19:02 19:06 19:11 Temperature Pulse Rate 76 74 72 Respiratory Rate Blood Pressure 176/86 Blood Pressure [Right] O2 Sat by Pulse 97 97 Oximetry 12/23/17 12/23/17 12/23/17 19:16 19:18 19:21 Temperature Pulse Rate 89 81 76 Respiratory Rate Blood Pressure 142/70 Blood Pressure [Right] O2 Sat by Pulse 97 97 Oximetry 12/23/17 12/23/17 12/23/17 19:26 19:30 19:31 Temperature 96.4 F L Pulse Rate 84 75 79 Respiratory 18 Rate Blood Pressure Blood Pressure 155/78 [Right] O2 Sat by Pulse 97 97 97 Oximetry 12/23/17 12/23/17 12/23/17 19:36 19:41 19:46 Temperature Pulse Rate 79 73 75 Respiratory Rate Blood Pressure 155/78 Blood Pressure [Right] O2 Sat by Pulse 97 98 97 Oximetry 12/23/17 12/23/17 12/23/17 19:51 19:56 20:01 Temperature Pulse Rate 78 78 80 Respiratory Rate Blood Pressure Blood Pressure [Right] O2 Sat by Pulse 96 97 97 Oximetry 12/23/17 12/23/17 12/23/17 20:03 20:06 20:11 Temperature Pulse Rate 75 81 84 Respiratory Rate Blood Pressure 140/71 Blood Pressure [Right] O2 Sat by Pulse 96 95 Oximetry 12/23/17 12/23/17 12/23/17 20:16 20:21 20:26 Temperature Pulse Rate 79 78 88 Respiratory Rate Blood Pressure Blood Pressure [Right] O2 Sat by Pulse 96 96 97 Oximetry 12/23/17 12/23/17 12/23/17 20:31 20:32 20:36 Temperature Pulse Rate 81 80 79 Respiratory Rate Blood Pressure 133/70 Blood Pressure [Right] O2 Sat by Pulse 96 98 Oximetry 12/23/17 12/23/17 20:41 20:46 Temperature Pulse Rate 91 H 80 Respiratory Rate Blood Pressure Blood Pressure [Right] O2 Sat by Pulse 97 98 Oximetry - Exam Breasts: deferred Cardiovascular: Regular rate Lungs: Normal air movement Abdomen: Absent: tenderness Vulva: both: normal Uterus: Absent: tenderness FHR: category 1 Cervical Dilatation: 5 (after verbal consent was obtained, AROM and ISE placed without difficulty) Cervical Effacement Percentage: 70 station: -0 Uterine Contraction Pattern: Regular Extremities: normal - Labs Labs: Abnormal Labs 12/22/17 12/22/17 22:20 23:36 WBC 13.4 H Hgb 8.6 L Hct 27.0 L MCV 73 L MCH 23 L RDW 18.4 H Creatinine 0.5 L ALT 6 L Total Protein 5.9 L Albumin 3.2 L Laboratory Results - last 24 hr 12/22/17 12/22/17 12/22/17 22:20 22:20 22:20 WBC 13.4 H RBC 3.69 Hgb 8.6 L Hct 27.0 L MCV 73 L MCH 23 L MCHC 32 RDW 18.4 H Plt Count 233 Sodium Potassium Chloride Carbon Dioxide Anion Gap BUN Creatinine Estimated GFR BUN/Creatinine Ratio Glucose Calcium Total Bilirubin AST ALT Alkaline Phosphatase Total Protein Albumin Albumin/Globulin Ratio RPR Nonreactive Blood Type O POSITIVE Antibody Screen Negative 12/22/17 23:36 WBC RBC Hgb Hct MCV MCH MCHC RDW Plt Count Sodium 139 Potassium 3.7 Chloride 101.7 Carbon Dioxide 22 Anion Gap 19 BUN 10 Creatinine 0.5 L Estimated GFR > 60 BUN/Creatinine Ratio 20 Glucose 92 Calcium 8.5 Total Bilirubin 0.20 AST 12 ALT 6 L Alkaline Phosphatase 94 Total Protein 5.9 L Albumin 3.2 L Albumin/Globulin Ratio 1.2 RPR Blood Type Antibody Screen
[2017-12-23] MEDS: MAGNESIUM SULFATE 40GM/1000ML 40 GM/1,000 ML BAG IV SCH (22:34)
--- NOTE | 2017-12-23 22:50 | Procedure Note ---
OB Delivery Note - Delivery Date of Delivery: 12/23/17 Surgeon: SHASHA BELTRAN Estimated blood loss: 200cc - Vaginal Delivery presentation: vertex Delivery position: OA Intrapartum events: preeclampsia Delivery induction: oxytocin Delivery augmentation: rupture of membranes, pitocin Delivery monitor: external FHT, external uterine, internal FHT Route of delivery: Delivery placenta: spontaneous (INTACT) Episiotomy: none Delivery laceration: none Anesthesia: epidural - A at 1 minute: 8 at 5 minutes: 9 Infant Gender: Male (6#8OZ)
[2017-12-24] MEDS ORDERED: MILK OF MAGNESIA PO PRN (00:48)
[2017-12-24] MEDS ORDERED: DULCOLAX PR PRN (00:48)
[2017-12-24] MEDS ORDERED: SODIUM CHLORIDE FLUSH SYRINGE 10 ML IV PRN (00:48)
[2017-12-24] MEDS ORDERED: CYTOTEC PR PRN (00:48)
[2017-12-24] MEDS ORDERED: TYLENOL PO PRN (00:48)
[2017-12-24] MEDS ORDERED: PHENERGAN PR PRN (00:48)
[2017-12-24] MEDS ORDERED: BENADRYL PO PRN (00:48)
[2017-12-24] MEDS ORDERED: ZOFRAN IV PRN (00:48)
[2017-12-24] MEDS ORDERED: APRESOLINE IV PRN (00:48)
[2017-12-24] MEDS ORDERED: PHENERGAN PO PRN (00:48)
[2017-12-24] MEDS ORDERED: PITOCin/NS 20 UNIT/1000ML DRIP 20 UNITS/1,000 ML BAG IV PRN (00:48)
[2017-12-24] MEDS ORDERED: TUCKS PAD TP PRN (00:48)
[2017-12-24] MEDS ORDERED: HEMABATE IM PRN (00:48)
[2017-12-24] MEDS ORDERED: LANSINOH TP PRN (00:48)
[2017-12-24] MEDS: LACTATED RINGERS 1,000 ML IV SCH ×2 (04:39→17:54)
[2017-12-24] MEDS: MOTRIN PO SCH ×3 (05:57→17:56)
--- NOTE | 2017-12-24 08:54 | Progress Note ---
Assessment and Plan A: day #1 after , Pre-e superimposed on htn. H&H ordered for noon today, b/p's 150-160/70-80's, afebrile. pt has existing anemia - denies feelin s/s anemia during ambulation. lochia scant. P: Continue mag x 24h post delivery, restart labetalol 200mg PO BID, FE BID, anticipate d/c home tomorrow if stable. - Patient Problems (1) (spontaneous vaginal delivery) Current Visit: Yes Status: Acute (2) Anemia affecting in third trimester Current Visit: Yes Status: Acute (3) Preeclampsia Current Visit: No Status: Acute Qualifiers: Trimester: third trimester Qualified Code(s): O14.93 - Unspecified pre- eclampsia, third trimester (4) Borderline personality disorder Current Visit: No Status: Chronic Subjective - Subjective Date of service: 12/24/17 Principal diagnosis: day #1 s/p , mild pre-e superimposed on HTN Patient reports: appetite normal, voiding normally, pain well controlled, ambulating normally, no dizzy ambulation, no nauseated : doing well, nursing well Objective - Vital Signs Latest vital signs: Vital Signs Temp Pulse Resp BP BP Pulse Ox 12/24/17 05:57 16 12/24/17 04:00 98.7 F 84 18 154/79 12/24/17 00:20 98.7 F 81 18 153/74 12/23/17 23:37 93 H 98 12/23/17 23:31 83 158/78 99 12/23/17 23:26 83 98 12/23/17 23:21 95 H 99 12/23/17 23:16 90 168/85 99 12/23/17 23:11 76 97 12/23/17 23:07 101 H 94 12/23/17 23:06 95 H 97 12/23/17 23:01 72 160/83 97 12/23/17 22:56 81 97 12/23/17 22:51 85 97 12/23/17 22:46 79 97 12/23/17 22:41 97.1 F L 83 18 154/87 97 12/23/17 22:36 91 H 97 12/23/17 22:32 86 154/87 12/23/17 22:31 82 97 05/24/18 22:26 82 98 05/24/18 22:21 84 97 05/24/18 22:16 84 99 05/24/18 22:11 92 H 97 05/24/18 22:06 93 H 99 05/24/18 22:04 99 H 175/99 05/24/18 22:01 94 H 98 05/24/18 21:56 89 99 05/24/18 21:51 84 98 05/24/18 21:46 86 97 05/24/18 21:41 87 97 05/24/18 21:36 84 99 05/24/18 21:33 82 172/87 05/24/18 21:31 85 98 05/24/18 21:26 81 99 05/24/18 21:21 86 98 05/24/18 21:16 85 97 05/24/18 21:11 85 98 05/24/18 21:06 94 H 98 05/24/18 21:03 86 170/87 05/24/18 21:01 86 98 05/24/18 20:56 90 98 05/24/18 20:51 87 97 05/24/18 20:46 80 98 05/24/18 20:41 91 H 97 05/24/18 20:36 79 98 05/24/18 20:32 80 133/70 05/24/18 20:31 81 96 05/24/18 20:26 88 97 05/24/18 20:21 78 96 05/24/18 20:16 79 96 05/24/18 20:11 84 95 05/24/18 20:06 81 96 05/24/18 20:03 75 140/71 05/24/18 20:01 80 97 05/24/18 19:56 78 97 05/24/18 19:51 78 96 05/24/18 19:46 75 97 05/24/18 19:41 73 98 05/24/18 19:36 79 155/78 97 05/24/18 19:31 79 97 05/24/18 19:30 96.4 F L 75 18 155/78 97 05/24/18 19:26 84 97 05/24/18 19:21 76 97 05/24/18 19:18 81 142/70 05/24/18 19:16 89 97 05/24/18 19:11 72 97 05/24/18 19:06 74 97 05/24/18 19:02 76 176/86 05/24/18 19:01 75 98 05/24/18 18:56 81 97 05/24/18 18:51 79 97 05/24/18 18:47 76 160/87 05/24/18 18:46 80 98 05/24/18 18:41 78 97 05/24/18 18:36 78 97 05/24/18 18:33 82 167/91 05/24/18 18:31 81 97 05/24/18 18:26 73 97 05/24/18 18:21 75 97 05/24/18 18:17 78 129/72 05/24/18 18:16 77 96 05/24/18 18:11 79 96 05/24/18 18:06 76 96 05/24/18 18:03 74 132/66 0524/18 18:01 75 96 05/24/18 17:56 73 96 05/24/18 17:51 77 97 05/24/18 17:47 84 175/86 05/24/18 17:46 79 98 05/24/18 17:41 74 97 05/24/18 17:36 79 97 05/24/18 17:32 81 151/84 05/24/18 17:31 79 97 05/24/18 17:30 98.2 F 73 18 150/83 05/24/18 17:28 78 152/86 05/24/18 17:26 76 151/85 98 05/24/18 17:24 75 154/87 05/24/18 17:22 77 154/88 05/24/18 17:21 76 97 05/24/18 17:20 78 152/89 05/24/18 17:18 74 152/88 05/24/18 17:17 72 160/91 05/24/18 17:16 70 98 05/24/18 17:14 71 162/89 05/24/18 17:12 77 156/90 05/24/18 17:11 76 154/83 98 05/24/18 17:09 80 151/76 05/24/18 17:07 81 158/97 05/24/18 17:06 81 98 05/24/18 17:05 96 H 156/71 0524/18 17:04 83 L 05/24/18 17:01 83 98 05/24/18 16:57 80 163/85 05/24/18 16:56 79 98 05/24/18 16:51 89 97 05/24/18 16:46 77 97 05/24/18 16:44 86 166/90 05/24/18 16:41 74 97 05/24/18 16:36 80 95 05/24/18 16:31 78 96 05/24/18 16:28 80 182/82 05/24/18 16:26 79 95 05/24/18 16:21 79 95 05/24/18 16:16 76 95 05/24/18 16:14 81 181/82 05/24/18 16:11 76 95 05/24/18 16:06 81 95 05/24/18 16:01 77 95 05/24/18 15:57 76 176/82 05/24/18 15:56 75 96 05/24/18 15:51 73 96 05/24/18 15:46 71 96 05/24/18 15:42 81 149/67 05/24/18 15:41 73 97 05/24/18 15:36 85 98 05/24/18 15:31 90 97 05/24/18 15:28 88 163/89 05/24/18 15:26 84 98 05/24/18 15:19 82 L 05/24/18 15:14 89 05/24/18 15:12 97 H 159/82 05/24/18 15:09 90 97 05/24/18 15:04 86 97 05/24/18 14:59 91 H 97 05/24/18 14:58 89 161/79 05/24/18 14:54 81 97 05/24/18 14:49 85 97 05/24/18 14:44 84 98 05/24/18 14:43 80 158/80 05/24/18 14:39 92 H 97 05/24/18 14:34 84 95 05/24/18 14:29 80 96 05/24/18 14:27 91 H 142/84 05/24/18 14:24 100 H 98 05/24/18 14:19 96 H 97 05/24/18 14:14 83 97 05/24/18 14:13 87 153/90 05/24/18 14:09 82 98 05/24/18 14:04 82 97 05/24/18 13:59 78 97 05/24/18 13:58 76 153/78 05/24/18 13:54 76 97 05/24/18 13:49 81 96 05/24/18 13:44 73 96 05/24/18 13:42 77 148/87 05/24/18 13:39 77 97 05/24/18 13:34 78 97 05/24/18 13:29 76 96 05/24/18 13:27 82 145/81 05/24/18 13:24 77 97 05/24/18 13:19 98.7 F 75 18 97 05/24/18 13:14 79 98 05/24/18 13:13 77 152/83 05/24/18 13:09 78 98 05/24/18 13:04 84 05/24/18 12:57 81 142/80 05/24/18 12:56 79 96 05/24/18 12:51 80 96 05/24/18 12:46 77 96 05/24/18 12:41 78 97 05/24/18 12:36 82 96 05/24/18 12:31 76 96 05/24/18 12:28 76 137/77 05/24/18 12:26 77 96 05/24/18 12:21 87 97 05/24/18 12:16 79 98 05/24/18 12:11 80 96 05/24/18 12:06 81 96 05/24/18 12:01 80 97 05/24/18 11:59 77 140/71 05/24/18 11:56 79 96 05/24/18 11:51 80 97 05/24/18 11:46 82 96 05/24/18 11:41 81 96 05/24/18 11:36 82 96 05/24/18 11:31 80 97 05/24/18 11:28 81 120/60 05/24/18 11:26 86 96 05/24/18 11:21 87 96 05/24/18 11:16 86 96 05/24/18 11:11 81 96 05/24/18 11:06 85 96 05/24/18 11:01 92 H 128/71 96 05/24/18 10:41 53 L 85 05/24/18 10:33 80 97 05/24/18 10:28 83 97 05/24/18 10:23 87 96 12/23/17 10:18 84 97 12/23/17 10:13 81 97 12/23/17 10:08 87 97 12/23/17 10:03 87 98 12/23/17 09:58 87 99 12/23/17 09:53 84 99 12/23/17 09:48 102 H 96 12/23/17 09:46 57 L 83 L 12/23/17 09:39 89 162/89 12/23/17 09:35 80 89 12/23/17 09:33 91 H 99 12/23/17 09:29 86 167/89 12/23/17 09:28 86 99 12/23/17 09:23 88 99 12/23/17 09:18 90 99 12/23/17 09:13 92 H 98 12/23/17 09:08 93 H 98 12/23/17 09:07 98.9 F 18 12/23/17 09:03 91 H 98 12/23/17 08:58 84 99 Intake and Output 12/23/17 12/24/17 12/24/17 23:59 07:59 15:59 Intake Total 572.767 Output Total 2200 Balance 572.767 -2200 Intake: IV 572.767 Lactated Ringers 1,000 ml 512.5 @ 125 mls/hr IV DIRECT JUNE Rx#:[id number] PITOCin/NS 30 UNIT/500ML 60.267 30 units In 500 ml @ 1 MILLIUNITS/MIN 1 mls/hr IV TITR JUNE Rx#:[id number] Output: Urine 2200 Void 2200 Other: Total, Output Amount 600 # Voids Void 1 Estimated Blood Loss 200 - Exam Breasts: Present: normal, Cardiovascular: Present: Regular rate Lungs: Present: Clear to auscultation, Normal air movement Abdomen: Present: normal appearance, soft, normal bowel sounds Vulva: both: normal Uterus: Present: normal, firm, fundal height at umbilicus Extremities: Present: normal Deep Tendon Reflex Grade: Normal +2 - Labs Labs: Abnormal lab results 12/24/17 12/24/17 Range/Units 02:15 07:37 Magnesium 3.10 H 3.90 H (1.7-2.3) mg/dL
[2017-12-24] MEDS: FEOSOL PO SCH ×2 (09:24→21:35)
[2017-12-24] MEDS: COLACE PO SCH ×2 (09:24→21:35)
[2017-12-24] MEDS: NORMODYNE PO SCH ×2 (09:24→21:35)
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
[2017-12-24] MEDS ORDERED: FIORICET PO PRN (14:58)
[2017-12-24 16:04] LABS: Hematocrit 23.9 % (30.3-42.9); Hemoglobin 7.8 gm/dl (10.1-14.3)
[2017-12-24] MEDS: MAGNESIUM SULFATE 40GM/1000ML 40 GM/1,000 ML BAG IV SCH (17:54)
[2017-12-25] MEDS: MOTRIN PO SCH ×3 (00:05→12:20)
[2017-12-25] MEDS ORDERED: BOOSTRIX IM ONE (06:00)
--- NOTE | 2017-12-25 10:37 | Event Note ---
Date: 12/25/17 (discussed home safety with pt) Pt voices she feels very safe going home. She will be in a safe environment. The father of her last 4 children will be with her. She does ask for transportaion to get home. RN notified.
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
[2017-12-25] MEDS: COLACE PO SCH (10:41)
[2017-12-25] MEDS: FEOSOL PO SCH (10:41)
[2017-12-25] MEDS: NORMODYNE PO SCH (10:41)
[2017-12-25 18:13] VITALS: BP 169/96
== END 2017-12-25 16:40 | disposition home or self-care (01) | DRG 774 ==
LOC: LD 20:38 → OB 12-24 00:02
PROVIDERS: ADMIT Obstetrics & Gynecology; ATTEND Obstetrics & Gynecology
PROC: 10E0XZZ Delivery of Products of Conception, External Approach (ICD-10-PCS; principal; 2017-12-23)
PROC: 3E0R3BZ Introduction of Anesthetic Agent into Spinal Canal, Percutaneous Approach (ICD-10-PCS; 2017-12-23)
PROC: 00HU33Z Insertion of Infusion Device into Spinal Canal, Percutaneous Approach (ICD-10-PCS; 2017-12-23)
PROC: 3E0234Z Introduction of Serum, Toxoid and Vaccine into Muscle, Percutaneous Approach (ICD-10-PCS; 2017-12-25)
DX: O14.93 Unspecified pre-eclampsia, third trimester (principal); O99.02 Anemia complicating childbirth; D64.9 Anemia, unspecified; O99.824 Streptococcus B carrier state complicating childbirth; O99.344 Other mental disorders complicating childbirth; F60.3 Borderline personality disorder; Z79.899 Other long term (current) drug therapy; Z3A.36 36 weeks gestation of pregnancy; Z23 Encounter for immunization; Z37.0 Single live birth
CPT/HCPCS: 36415; 59200; 80053; 83735; 85014; 85018; 85027; 86592; 86850; 86900; 86901; J0290; J2590; J3010; J3475; J7120